=== PATIENT | female | born 1950 | race Caucasian/White ===

== ENCOUNTER → 2016-10-09 | Outpatient (CLI) | payer OTHER ==
[2012-07-04 18:36] VITALS: BP 148/80
--- NOTE | 2016-10-09 12:25 | MG ---
HISTORY: SCREENING Comparison: 05/06/2015, 04/08/2014, 05/30/2012 FINDINGS: Bilateral CC and MLO projections of the right and left breast were obtained. Scattered fibroglandul ar tissue is seen to be present. No significant architectural distortion, mass or clustered microca lcifications can be observed to suggest malignancy. No skin thickening or nipple retraction is appr eciated. No pathological lymphadenopathy can be identified. IMPRESSION: NO RADIOGRAPHIC EVIDENCE OF MALIGNANCY. ACR CATEGORY I - NEGATIVE EXAM. FOLLOW-UP EXAM 1 YEAR. Diagnostic CAD was utilized and reviewed. * 0 (ZERO) - ASSESSMENT INCOMPLETE; ADDITIONAL IMAGING IS NEEDED. * / (ONE) - NEGATIVE. * 2/II (TWO) - BENIGN FINDINGS. * 3/III (THREE) - PROBABLY BENIGN FINDING; SHORT INTERVAL FOLLOW-UP SUGGESTED. * 4/IV (FOUR) - SUSPICIOUS ABNORMALITY; BIOPSY SHOULD BE CONSIDERED. * 5/V - HIGHLY SUSPICIOUS OF MALIGNANCY; BIOPSY SHOULD BE PERFORMED. A NEGATIVE X-RAY REPORT SHOULD NOT DELAY BIOPSY IF A DOMINANT OR CLINICALLY SUSPICIOUS MASS IS PRESENT; 4 TO 8 PERCENT OF CANCERS ARE NOT IDENTIFIED BY X-RAY. A NEG ATIVE REPORT MAY REINFORCE THE CLINICAL IMPRESSION. ADENOSIS AND DENSE BREASTS MAY OBSCURE AN UNDER LYING NEOPLASM. Reported By:
== END ==
LOC: RAD 10:44
PROVIDERS: ATTEND Obstetrics & Gynecology
DX: Z12.31 Encounter for screening mammogram for malignant neoplasm of breast (principal)
CPT/HCPCS: 77067

== ENCOUNTER → 2017-10-18 | Outpatient (CLI) | payer BC ==
[2012-07-04 18:36] VITALS: BP 148/80
[2017-10-18 10:37] LABS: BASOPHILS # (AUTO) 0.1 X10^3/uL (0.0-0.1); BASOPHILS % (AUTO) 0.9 % (0.2-1.0); EOSINOPHILS # (AUTO) 0.1 x10^3/uL (0.0-0.2); EOSINOPHILS % (AUTO) 0.9 % (0.9-2.9); HEMATOCRIT 38.9 % (36.0-47.0); HEMOGLOBIN 13.7 g/dL (12.0-16.0); LYMPHOCYTES # (AUTO) 1.7 X10^3/uL (1.3-2.9); LYMPHOCYTES % (AUTO) 23.6 % (21.0-51.0); MEAN CORPUSCULAR HEMOGLOBIN 30.1 pg (27.0-34.0); MEAN CORPUSCULAR HGB CONC 35.2 g/dL (33.0-35.0); MEAN CORPUSCULAR VOLUME 85.4 fL (80.0-100.0); MEAN PLATELET VOLUME 10.1 fL (7.4-11.0); MONOCYTES # (AUTO) 0.3 x10^3/uL (0.3-0.8); MONOCYTES % (AUTO) 4.7 % (0.0-13.0); NEUTROPHILS # (AUTO) 5.1 x10^3/uL (2.2-4.8); NEUTROPHILS % (AUTO) 69.9 % (42.0-75.0); PLATELET COUNT 224 X10^3/uL (150.0-450.0); RED BLOOD COUNT 4.55 X10^6/uL (3.5-5.4); RED CELL DISTRIBUTION WIDTH 12.5 % (11.6-16.5); RETICULOCYTE % 1.29 % (0.8-2.2); WHITE BLOOD COUNT 7.3 X10^3/uL (3.6-10.0)
[2017-10-18 11:00] LABS: FREE T4 (FREE THYROXINE) 0.84 ng/dL (0.76-1.46); TSH (3RD GENERATION) 2.958 uIU/mL (0.358-3.74)
[2017-10-18 11:10] LABS: ERYTHROCYTE SEDIMENTATION RATE 8 MM/HOUR (0-20)
[2017-10-18 11:26] LABS: IRON 85 ug/dL (50-175); TOTAL IRON BINDING CAPACITY 322 ug/dL (250-450)
[2017-10-18 11:40] LABS: RHEUMATOID FACTOR NEGATIVE (NEGATIVE)
--- NOTE | 2017-10-18 11:48 | MRI ---
STUDY: MRI OF THE BRAIN WITHOUT GADOLINIUM HISTORY: Syncope and collapse. Dizzy spells. Technique: Multiplanar multi-sequence MRI of the brain was obtained utilizing standard departmental p rotocol. Sagittal and axial T1, axial T2, FLAIR, diffusion (DWI/ADC), GRE, and coronal T2 images thro [facility] the brain were performed. Comparison: None. Findings: The sulci, cisterns and ventricles are age appropriate. There are scattered foci of T2 prolongation i n the periventricular and subcortical white matter of both hemispheres. This is a nonspecific finding which likely represents microangiopathic change in a patient of this age. There is no evidence of acute territorial infarction, hemorrhage, mass, mass effect, or midline shift . There are no abnormal intra-axial or extra-axial fluid collections. The major intracranial vascular flow voids appear intact. The right vertebral artery appears dominant . There is right-sided aphakia. IMPRESSION: 1. No evidence of acute intracranial abnormality. 2. Nonspecific white matter change. Reported By:
[2017-10-21 11:25] LABS: IMMUNOGLOBULIN M 62 mg/dL (35-263)
[2017-10-21 11:27] LABS: ANTI-NUCLEAR ANTIBODY TEST None Detected (None Detected)
[2017-10-22 01:37] LABS: ALBUMIN (SPEP) 4.69 g/dL (3.75-5.01); ALPHA-2 (SPEP) 0.75 g/dL (0.48-1.05); GAMMA (SPEP) 0.69 g/dL (0.62-1.51)
== END ==
LOC: RAD 10:11
PROVIDERS: ATTEND Psychiatry & Neurology Neurology
DX: R55 Syncope and collapse (principal); G60.9 Hereditary and idiopathic neuropathy, unspecified; R79.89 Other specified abnormal findings of blood chemistry; R79.82 Elevated C-reactive protein (CRP)
CPT/HCPCS: 36415; 70551; 82607; 82728; 82746; 82784; 83540; 83550; 84165; 84439; 84443; 85025; 85045; 85652; 86140; 86308; 86334; 86430